=== PATIENT | male | born 1960 | race Hispanic/Latino ===

== ENCOUNTER 2018-03-02 14:45 | Emergency (ER) | payer MEDICARE ==
[2018-03-02 14:45] VITALS: BMI 24.7
[2018-03-02 14:58] VITALS: PULSE 77; O2SAT 99
--- NOTE | 2018-03-02 16:25 | RAD ---
Date of service: 03/02/2018 PROCEDURE: Radiographs of the Chest and Left Ribs. HISTORY: r/o fx and PTX COMPARISON: None available. TECHNIQUE: Frontal radiograph of the chest and multiple oblique radiographs of the left ribs were obtained. FINDINGS: LEFT RIBS: No fracture or focal lesion visualized. LUNGS: Clear. PLEURA: No pneumothorax or pleural fluid. CARDIOVASCULAR: Atherosclerotic aortic calcifications. Cardiomediastinal silhouette within normal limits. OTHER FINDINGS: None. IMPRESSION: Unremarkable radiographs of the chest and left ribs. No left rib fracture.
[2018-03-02 17:02] VITALS: BP 157/90; RESP 20; TEMP 98.7
--- NOTE | 2018-03-02 17:35 | C.PDOC ---
History Of Present Illness 57 y/o male presents to ED with c/o left rib pain after jumping and striking wooden dock with ribs 3 days ago. Patient reports pain with inspiration and denies fever, cough, sob or any other complaints at this time. Time Seen by Provider: 03/02/18 15:06 Chief Complaint (Nursing): Rib Injury History Per: Patient History/Exam Limitations: no limitations Onset/Duration Of Symptoms: Days Current Symptoms Are (Timing): Still Present Past Medical History Reviewed: Historical Data, Nursing Documentation, Vital Signs Vital Signs: Last Vital Signs Temp 98.7 F 03/02/18 17:00 Pulse 77 03/02/18 17:00 Resp 20 03/02/18 17:00 BP 157/90 H 03/02/18 17:00 Pulse Ox 99 03/02/18 17:40 - Medical History PMH: No Chronic Diseases Surgical History: Cholecystectomy - [facility] Procedures CORONAR ARTERIOGR-2 CATH (07/29/13) LEFT HEART CARDIAC CATH (07/29/13) LT HEART ANGIOCARDIOGRAM (07/29/13) Family History: States: No Known Family Hx - Social History Hx Alcohol Use: No Hx Substance Use: No Review Of Systems Cardiovascular: Negative for: Chest Pain Respiratory: Negative for: Cough, Shortness of Breath Musculoskeletal: Positive for: Other (rib pain) Skin: Negative for: Rash Physical Exam - Physical Exam Appears: Non-toxic, No Acute Distress Skin: Warm, Dry, No Rash Head: Atraumatic, Normacephalic Eye(s): bilateral: Normal Inspection Oral Mucosa: Moist Neck: Supple Chest: Tenderness (to left mid axillar line. no crepitus) Cardiovascular: Rhythm Regular Respiratory: Normal Breath Sounds, No Rales, No Rhonchi, No Wheezing Gastrointestinal/Abdominal: Soft, No Tenderness, No Guarding, No Rebound Neurological/Psych: Oriented x3, Normal Speech, Normal Cognition ED Course And Treatment O2 Sat by Pulse Oximetry: 99 (RA) Disposition - Disposition Referrals: Tray Sue MD [Staff Provider] - Disposition: HOME/ ROUTINE Disposition Time: 16:25 Condition: GOOD Additional Instructions: DIAN PEOPLES, thank you for letting us take care of you today. Your provider was Gennaro Leroy DO and you were treated for LT SIDE RIB CAGE PAIN. The emergency medical care you received today was directed at your acute symptoms. If you were prescribed any medication, please fill it and take as directed. It may take several days for your symptoms to resolve. Return to the Emergency Department if your symptoms worsen, do not improve, or if you have any other problems. Please contact your doctor or call one of the physicians/clinics you have been referred to that are listed on the Patient Visit Information form that is included in your discharge packet. Bring any paperwork you were given at discharge with you along with any medications you are taking to your follow up visit. Our treatment cannot replace ongoing medical care by a primary care provider outside of the emergency department. Thank you for allowing the [facility] team to be part of your care today. TRY TO STOP/CUT DOWN ON SMOKING!!!! Use the incentive spirometer as much as possible. Follow up with your primary care doctor in 2-3 days for re-evaluation and further management. Prescriptions: Ibuprofen [Motrin] 600 mg PO Q6 PRN #20 tab PRN Reason: Pain, Moderate (4-7) Instructions: How to Use an Incentive Spirometer, Quitting Smoking for Older Adults, Bruised Rib (DC) Forms: [employer] (Wallisian) - Clinical Impression Clinical Impression: Rib contusion - Scribe Statement The provider has reviewed the documentation as recorded by the Scriblaine Hernandez All medical record entries made by the Alejandroiblaine were at my direction and personally dictated by me. I have reviewed the chart and agree that the record accurately reflects my personal performance of the history, physical exam, medical decision making, and the department course for this patient. I have also personally directed, reviewed, and agree with the discharge instructions and disposition.
== END 2018-03-02 17:02 | disposition home or self-care (01) ==
LOC: C.ER 14:45
DX: S20.212A Contusion of left front wall of thorax, initial encounter (principal); W22.8XXA Striking against or struck by other objects, initial encounter